=== PATIENT | female | born 1975 | race African-American/Black ===

== ENCOUNTER 2017-02-20 00:02 | Emergency (ER) | payer SELFPAY ==
[~2017-02-20] VITALS: Ht 170.2 cm; Wt 55.8 kg
[2017-02-20 00:20] VITALS: BP 159/98
[2017-02-20] MEDS ORDERED: HYDROCHLOROTHIA25 MG ORAL (00:21)
[2017-02-20] MEDS ORDERED: LISINOPRIL20 MG ORAL (00:21)
[2017-02-20 01:16] LABS: BASOPHILS % (AUTO) 1.2 % (0.0-2.0); EOSINOPHILS % (AUTO) 2.7 % (0.0-3.0); LYMPHOCYTES % (AUTO) 49.2 % (20.0-45.0); MEAN CORPUSCULAR HEMOGLOBIN 29.4 PG (27.0-31.0); MEAN CORPUSCULAR HGB CONC 32.8 G/DL (32.0-36.0); MEAN CORPUSCULAR VOLUME 90 FL (80-99); MEAN PLATELET VOLUME 9.5 FL (6.5-10.1); NEUTROPHILS % (AUTO) 38.9 % (45.0-75.0); PLATELET COUNT 254 K/UL (150-450); RED BLOOD COUNT 4.13 M/UL (4.20-5.40); RED CELL DISTRIBUTION WIDTH 11.8 % (11.6-14.8); WHITE BLOOD COUNT 5.9 K/UL (4.8-10.8)
[2017-02-20 01:41] LABS: ALBUMIN/GLOBULIN RATIO 1.3 (1.0-2.7); CALCIUM 9.4 mg/dL (8.6-10.2); CREATININE 1.2 mg/dL (0.5-0.9); GLOMERULAR FILTRATION RATE 49.8 mL/min (>60); POTASSIUM 3.3 mEQ/L (3.4-4.9); TOTAL PROTEIN 7.3 g/dL (6.6-8.7)
[2017-02-20 01:44] LABS: TROPONIN I < 0.30 ng/mL (<=0.30)
[2017-02-20 01:45] VITALS: BP 138/92
[2017-02-20 02:45] VITALS: BP 130/89
--- NOTE | 2017-02-23 14:59 | Cardiology Report ---
APPROVED REPORT EKG Measurement Heart [id number] ME [id number] [id number] Normal sinus rhythm Normal ECG
== END 2017-02-20 02:45 | disposition home or self-care (01) ==
LOC: EMR 01:15
DX: E87.6 Hypokalemia (principal); R42 Dizziness and giddiness; R53.1 Weakness
CPT/HCPCS: 36415; 80053; 84484; 85025; 93005; 96360; 99284; J7040; J8499